=== PATIENT | male | born 1955 | race Caucasian/White ===

== ENCOUNTER 2024-08-15 11:40 | Emergency (ER) | payer MEDICARE ==
[~2024-08-15] VITALS: Ht 170.2 cm; Wt 165.0 kg
[2024-08-15 11:49] VITALS: O2SAT 97
[2024-08-15 12:30] VITALS: BP 123/62; PULSE 88; RESP 16; TEMP 37.7; O2SAT 97
== END 2024-08-15 18:58 | disposition home or self-care (01) ==
LOC: ER 11:40
DX: S00.03XA Contusion of scalp, initial encounter (principal); Z79.899 Other long term (current) drug therapy; W19.XXXA Unspecified fall, initial encounter; Y93.89 Activity, other specified; Y92.89 Other specified places as the place of occurrence of the external cause; Y99.8 Other external cause status
CPT/HCPCS: 99284; 70450; A6449